=== PATIENT | male | born 1975 | race Caucasian/White ===

== ENCOUNTER 2019-04-21 08:37 | Emergency (ER) | payer OTHER ==
[~2019-04-21] VITALS: Ht 175.3 cm; Wt 74.8 kg
[2019-04-21] MEDS ORDERED: NORCO 5-325 TA1 EACH PO (10:21)
== END 2019-04-21 10:35 | disposition home or self-care (01) ==
LOC: ED 08:37
DX: S82.442A Displaced spiral fracture of shaft of left fibula, initial encounter for closed fracture (principal); Z88.5 Allergy status to narcotic agent; X50.1XXA Overexertion from prolonged static or awkward postures, initial encounter
CPT/HCPCS: 73610; 99283